=== PATIENT | male | born 1985 | race African-American/Black ===

== ENCOUNTER 2019-08-28 20:04 | Emergency (ER) | payer OTHER ==
--- NOTE | 2019-08-28 20:38 | ER ---
Nurse's Notes [facility] Name: Jesse Chilel Age: 34 yrs Sex: Male : 1985 Arrival Date: 08/28/2019 Time: 20:08 Bed 19 Private MD: Diagnosis: Dental caries;Dentalgia;Essential (primary) hypertension Presentation: 08/28 20:12 Presenting complaint: Patient states: "I have an abscess in like an impacted tooth and aj1 I'm in so much pain. I have an extraction on but the pain is too much until then". Transition of care: patient was not received from another setting of care. Onset of symptoms was August 28, 2019. Risk Assessment: Do you want to hurt yourself or someone else? Patient reports no desire to harm self or others. Initial Sepsis Screen: Does the patient meet any 2 criteria? HR > 90 bpm. No. Patient's initial sepsis screen is negative. Does the patient have a suspected source of infection? Yes: Other: possible infected tooth. Care prior to arrival: None. 20:12 Method Of Arrival: Ambulatory aj 20:12 Acuity: IVAN 4 aj1 Triage Assessment: 20:15 General: Appears in no apparent distress. uncomfortable, Behavior is calm, cooperative, aj1 appropriate for age. Pain: Complains of pain in right jaw. Neuro: Level of Consciousness is awake, alert, obeys commands. Cardiovascular: Patient's skin is warm and dry. Respiratory: Airway is patent Respiratory effort is even, unlabored, Respiratory pattern is regular, symmetrical. Historical: - Allergies: 20:15 NKA; aj1 - Home Meds: 20:15 Trileptal oral oral [Active]; Effexor Oral [Active]; Abilify oral oral [Active]; aj1 Lamictal Oral [Active]; Prazosin Oral [Active]; - PMHx: 20:15 Asthma; Bipolar disorder; GERD; Hypertension; aj1 - Immunization history:: Flu vaccine is not up to date. - Social history:: Smoking status: Patient uses tobacco products, denies chronic smoking, but will smoke occasionally. - Ebola Screening: : Patient denies travel to an Ebola-affected area in the 21 days before illness onset. Screenin:38 Abuse screen: Denies threats or abuse. Denies injuries from another. Nutritional wh screening: No deficits noted. Tuberculosis screening: No symptoms or risk factors identified. Fall Risk None identified. Assessment: 20:37 General: Appears in no apparent distress. uncomfortable, Behavior is calm, cooperative, wh appropriate for age. Pain: Complains of pain in right jaw Pain does not radiate. Pain currently is 10 out of 10 on a pain scale. Quality of pain is described as aching, Pain began 2-3 days ago. 20:37 Neuro: Level of Consciousness is awake, alert, obeys commands, Oriented to person, wh place, time, situation, Appropriate for age. Cardiovascular: Capillary refill < 3 seconds. Cardiovascular: Heart tones S1 S2 Respiratory: Breath sounds are clear bilaterally. GI: Abdomen is flat, non-distended. : No signs and/or symptoms were reported regarding the genitourinary system. EENT: dental carries. Derm: Skin is intact, is healthy with good turgor, Skin is pink, warm \\T\\ dry. normal. Musculoskeletal: Circulation, motion, and sensation intact. 21:22 Reassessment: Patient appears in no apparent distress at this time. No changes from previously documented assessment. Patient and/or family updated on plan of care and expected duration. Pain level reassessed. Patient is alert, oriented x 3, equal unlabored respirations, skin warm/dry/pink. Vital Signs: 20:15 BP 181 / 114; Pulse 95; Resp 18; Temp 97.3; Pulse Ox 98% on R/A; Weight 181.44 kg (R); aj1 Height 6 ft. 5 in. (195.58 cm) (R); Pain 10/10; 21:22 BP 164 / 98; Pulse 92; Resp 18; Pulse Ox 99% ; wh 20:15 Body Mass Index 47.43 (181.44 kg, 195.58 cm) aj1 ED Course: 20:08 Patient arrived in ED. ds1 20:13 Triage completed. aj1 20:15 Arm band placed on. aj1 20:25 Criselda Lim FNP-C is PHCP. snw 20:25 Perfecto Nuñez MD is Attending Physician. snw 20:36 Desmond Mcgowan is Primary Nurse. wh 20:38 Patient has correct armband on for positive identification. Bed in low position. Call wh light in reach. Side rails up X 1. Pulse ox on. NIBP on. 20:49 No provider procedures requiring assistance completed. Patient did not have IV access during this emergency room visit. Administered Medications: 20:46 Drug: Valium 2 mg Route: PO; ea 21:21 Follow up: Response: No adverse reaction; RASS: Alert and Calm (0) 20:46 Drug: morphine 10 mg {Note: RASS1.} Route: IM; Site: right gluteus; ea 21:22 Follow up: Response: No adverse reaction; Pain is decreased; RASS: Alert and Calm (0) Outcome: 20:37 Discharge ordered by . dinesh 21:21 Discharged to home ambulatory, with family. 21:21 Condition: stable 21:21 Discharge instructions given to patient, family, Instructed on discharge instructions, follow up and referral plans. no drinking with medication, no driving heavy equipment, medication usage, POC Dental Abscess and HTN Demonstrated understanding of instructions, follow-up care, medications, POC Prescriptions given X 2. 21:22 Patient left the ED. Signatures: Anna Zavala RN RN aj1 Criselda Lim, FUR BLOWING MACHINE ATTENDANT-C FUR BLOWING MACHINE ATTENDANT-Csnw Karin Ku ds1 Jess Daly RN RN ea [place], Winsy Corrections: (The following items were deleted from the chart) 20:16 20:12 Acuity: IVAN 5 aj1 aj1
--- NOTE | 2019-08-28 20:38 | EDPHYS ---
Physician Documentation [facility] Name: Jesse Chilel Age: 34 yrs Sex: Male : 1985 Arrival Date: 08/28/2019 Time: 20:08 Bed 19 Private MD: ED Physician Perfecto Nuñez HPI: 08/28 21:05 This 34 yrs old Black Male presents to ER via Ambulatory with complaints of Dental snw Abscess. 21:05 Onset: The symptoms/episode began/occurred suddenly, and became worse and became snw persistent. Associated signs and symptoms: The patient has no apparent associated signs or symptoms. Modifying factors: The patient symptoms are alleviated by nothing. It is unknown whether or not the patient has had similar symptoms in the past. The patient has been recently seen by a physician: a dentist. Historical: - Allergies: 20:15 NKA; aj1 - Home Meds: 20:15 Trileptal oral oral [Active]; Effexor Oral [Active]; Abilify oral oral [Active]; aj1 Lamictal Oral [Active]; Prazosin Oral [Active]; - PMHx: 20:15 Asthma; Bipolar disorder; GERD; Hypertension; aj1 - Immunization history:: Flu vaccine is not up to date. - Social history:: Smoking status: Patient uses tobacco products, denies chronic smoking, but will smoke occasionally. - Ebola Screening: : Patient denies travel to an Ebola-affected area in the 21 days before illness onset. ROS: 21:02 Constitutional: Negative for fever, chills, and weight loss, Eyes: Negative for injury, snw pain, redness, and discharge, Neck: Negative for injury, pain, and swelling, Cardiovascular: Negative for chest pain, palpitations, and edema, Respiratory: Negative for shortness of breath, cough, wheezing, and pleuritic chest pain, Abdomen/GI: Negative for abdominal pain, nausea, vomiting, diarrhea, and constipation, Back: Negative for injury and pain, : Negative for injury, bleeding, discharge, and swelling, MS/Extremity: Negative for injury and deformity, Skin: Negative for injury, rash, and discoloration, Neuro: Negative for headache, weakness, numbness, tingling, and seizure. 21:03 ENT: Positive for dental pain. snw Exam: 20:59 Constitutional: This is a well developed, well nourished patient who is awake, alert, snw and in no acute distress. Head/Face: Normocephalic, atraumatic. Eyes: Pupils equal round and reactive to light, extra-ocular motions intact. Lids and lashes normal. Conjunctiva and sclera are non-icteric and not injected. Cornea within normal limits. Periorbital areas with no swelling, redness, or edema. Neck: Trachea midline, no thyromegaly or masses palpated, and no cervical lymphadenopathy. Supple, full range of motion without nuchal rigidity, or vertebral point tenderness. No Meningismus. Chest/axilla: Normal chest wall appearance and motion. Nontender with no deformity. No lesions are appreciated. Cardiovascular: Regular rate and rhythm with a normal S1 and S2. No gallops, murmurs, or rubs. Normal PMI, no JVD. No pulse deficits. Respiratory: Lungs have equal breath sounds bilaterally, clear to auscultation and percussion. No rales, rhonchi or wheezes noted. No increased work of breathing, no retractions or nasal flaring. Abdomen/GI: Soft, non-tender, with normal bowel sounds. No distension or tympany. No guarding or rebound. No evidence of tenderness throughout. Back: No spinal tenderness. No costovertebral tenderness. Full range of motion. Skin: Warm, dry with normal turgor. Normal color with no rashes, no lesions, and no evidence of cellulitis. MS/ Extremity: Pulses equal, no cyanosis. Neurovascular intact. Full, normal range of motion. Neuro: Awake and alert, GCS 15, oriented to person, place, time, and situation. Cranial nerves II-XII grossly intact. Motor strength 5/5 in all extremities. Sensory grossly intact. Cerebellar exam normal. Normal gait. Psych: Awake, alert, with orientation to person, place and time. Behavior, mood, and affect are within normal limits. 20:59 ENT: External ear(s): are unremarkable, Ear canal(s): are normal, TM's: are normal, Nose: is normal, Mouth: is normal, Posterior pharynx: is normal, Dental exam: dental caries, that is severe, diffusely, pain, that is moderate, specifically in the lower right third molar (#32), Voice: is normal. Vital Signs: 20:15 BP 181 / 114; Pulse 95; Resp 18; Temp 97.3; Pulse Ox 98% on R/A; Weight 181.44 kg (R); aj1 Height 6 ft. 5 in. (195.58 cm) (R); Pain 10/10; 21:22 BP 164 / 98; Pulse 92; Resp 18; Pulse Ox 99% ; wh 20:15 Body Mass Index 47.43 (181.44 kg, 195.58 cm) aj1 MDM: 20:37 Patient medically screened. snw 21:04 Data reviewed: vital signs, nurses notes. Data interpreted: Pulse oximetry: on room air snw is 98 %. Interpretation: normal. Counseling: I had a detailed discussion with the patient and/or guardian regarding: the historical points, exam findings, and any diagnostic results supporting the discharge/admit diagnosis, the presence of at least one elevated blood pressure reading (>120/80) during this emergency department visit, the need for outpatient follow up, to return to the emergency department if symptoms worsen or persist or if there are any questions or concerns that arise at home. Special discussion: Based on the history and exam findings, there is no indication for further emergent testing or inpatient evaluation. I discussed with the patient/guardian the need to see a dentist for further evaluation of the symptoms. ED course: Pt has appt for extraction on , taking clindamycin po. Administered Medications: 20:46 Drug: Valium 2 mg Route: PO; ea 21:21 Follow up: Response: No adverse reaction; RASS: Alert and Calm (0) 20:46 Drug: morphine 10 mg {Note: RASS1.} Route: IM; Site: right gluteus; ea 21:22 Follow up: Response: No adverse reaction; Pain is decreased; RASS: Alert and Calm (0) Disposition: 21:36 Co-signature as Attending Physician, Perfecto Nuñez MD Signed chart for administrative ps1 purposes . Disposition: 08/28/19 20:37 Discharged to Home. Impression: Dental caries, Dentalgia, Essential (primary) hypertension. - Condition is Stable. - Discharge Instructions: Dental Pain, Hypertension, Diet and Dental Disease, DASH Eating Plan, Rehydration, Adult, Managing Your Hypertension, Preventive Dental Care, Adult. - Prescriptions for chlorhexidine gluconate 0.12 % Mucous Membrane mouthwash - place 15 milliliter by MUCOUS MEMBRANE route 2 times per day after brushing teeth, swish in mouth for 30 seconds then spit out; 480 milliliter. Tylenol- Codeine #3 300-30 mg Oral Tablet - take 2 tablets by ORAL route every 6 hours As needed; 10 tablet. - Medication Reconciliation Form, Thank You Letter, Antibiotic Education, Prescription Opioid Use form. - Follow up: Emergency Department; When: As needed; Reason: Worsening of condition. Follow up: Private Physician; When: as scheduled; Reason: Recheck today's complaints, Continuance of care. - Notes: dental wax as needed Signatures: Anna Zavala, RN RN aj1 Criselda Lim, REMY-C FIREWORKS ASSEMBLY SUPERVISOR-Csnw Jess Daly, RN RN Desmond Syed Phillip, MD MD ps1 Corrections: (The following items were deleted from the chart) 21:22 20:37 08/28/2019 20:37 Discharged to Home. Impression: Dental caries; Dentalgia; wh Essential (primary) hypertension. Condition is Stable. Forms are Medication Reconciliation Form, Thank You Letter, Antibiotic Education, Prescription Opioid Use. Follow up: Emergency Department; When: As needed; Reason: Worsening of condition. Follow up: Private Physician; When: as scheduled; Reason: Recheck today's complaints, Continuance of care. snw
[2019-08-28] MEDS ORDERED: MORPHINE 2 MG/ML SYR ONE (20:40)
[2019-08-28] MEDS ORDERED: MORPHINE 4 MG/ML SYR ONE (20:40)
[2019-08-28] MEDS ORDERED: DIAZEPAM 2 MG TABLET ONE (20:41)
[2019-08-28 21:28] VITALS: TEMP 97.3
[2019-08-28 21:30] VITALS: BP 164/98; O2SAT 99
== END 2019-08-28 21:22 | disposition home or self-care (01) ==
LOC: ER 20:04
DX: K02.9 Dental caries, unspecified (principal); K08.89 Other specified disorders of teeth and supporting structures; I10 Essential (primary) hypertension; F31.9 Bipolar disorder, unspecified; Z72.0 Tobacco use
CPT/HCPCS: 96372; 99283; J2270

== ENCOUNTER 2020-04-07 11:00 | Emergency (ER) | payer OTHER ==
[2020-04-07 13:35] LABS: Absolute Lymphocytes (CBC) 2.5 K/uL (0.7-4.9); Basophils % 0.8 % (0-1.3); Hematocrit 38.8 % (39.6-49.0); Lymphocytes % 30.1 % (15.3-44.8); MPV 8.8 fL (7.6-11.3); RBC Red Blood Cell Count 4.67 M/uL (4.33-5.43)
[2020-04-07] MEDS ORDERED: MAGNE/ALUM HYDROXD 30 ML UCUP ONE (13:37)
[2020-04-07] MEDS ORDERED: LIDOCAINE VISCOUS 2% SOLN 15 ML UDC ONE (13:38)
[2020-04-07] MEDS ORDERED: MECLIZINE HCL 12.5 MG TAB ONE (13:38)
[2020-04-07] MEDS ORDERED: NA CHLORIDE 0.9% 1,000 ML ONE (13:38)
[2020-04-07 13:47] LABS: BUN Blood Urea Nitrogen 8 mg/dL (7-18); Bicarbonate 31 mmol/L (21-32); Glucose Level 100 mg/dL (74-106); Potassium 4.4 mmol/L (3.5-5.1); Sodium Level 141 mmol/L (136-145)
--- NOTE | 2020-04-07 13:57 | RAD REPORT ---
EXAM DESCRIPTION: CT - Head Brain Wo Cont - 04/07/2020 1:41 pm CLINICAL HISTORY: Dizziness COMPARISON: 2015 TECHNIQUE: Computed axial tomography of the head was obtained. IV contrast was not requested. All CT scans are performed using dose optimization technique as appropriate and may include automated exposure control or mA/KV adjustment according to patient size. FINDINGS: An intracranial bleed is not seen . The ventricles are normal in caliber. No extra-axial fluid collection is noted. Fluid within the sinuses/ mastoids is not seen. Mild chronic ethmoid sinusitis IMPRESSION: No acute intracranial abnormality is seen. If patient's symptoms persist MRI of the bra in would be recommended.
--- NOTE | 2020-04-07 14:35 | EDPHYS ---
Physician Documentation [facility] Name: Jesse Chilel Age: 35 yrs Sex: Male : 1985 Arrival Date: 04/07/2020 Time: 11:03 Bed 26 Private MD: ED Physician Juan Diego Laguerre HPI: 04/07 14:23 This 35 yrs old Black Male presents to ER via Ambulatory with complaints of Dizziness, rn Vomiting. 14:23 The patient presents with feeling off balance, sense of spinning, vertigo. Onset: The rn symptoms/episode began/occurred 3 day(s) ago. Modifying factors: The symptoms are alleviated by holding head still, lying down, the symptoms are aggravated by movement of head, standing up, changing position. Associated signs and symptoms: Pertinent positives: nausea, vomiting, Pertinent negatives: abdominal pain, chest pain, seizure. Severity of symptoms: At their worst the symptoms were moderate in the emergency department the symptoms have improved. The patient has not experienced similar symptoms in the past. The patient has not recently seen a physician. Reports negative test for COVID recently but now having headache, dizziness, nausea, intermittent, worse with changing position/standing up, better when laying down and still. . Historical: - Allergies: 11:15 NKA; em - PMHx: 11:15 Asthma; Bipolar disorder; GERD; Hypertension; em - PSHx: 11:18 left foot; em - Immunization history:: Adult Immunizations up to date. - Social history:: Smoking status: Patient denies any tobacco usage or history of. - Family history:: not pertinent. - Hospitalizations: : No recent hospitalization is reported. ROS: 14:23 Constitutional: Negative for fever, chills, and weight loss, Eyes: Negative for injury, rn pain, redness, and discharge, Neck: Negative for injury, pain, and swelling, Cardiovascular: Negative for chest pain, palpitations, and edema, Respiratory: Negative for shortness of breath, cough, wheezing, and pleuritic chest pain, Abdomen/GI: Negative for abdominal pain, diarrhea, and constipation, Back: Negative for injury and pain, MS/Extremity: Negative for injury and deformity, Skin: Negative for injury, rash, and discoloration, Neuro: Negative for headache, weakness, numbness, tingling, and seizure. Exam: 14:03 ECG was reviewed by the Attending Physician. rn 14:23 Constitutional: This is a well developed, well nourished patient who is awake, alert, rn and in no acute distress. Head/Face: Normocephalic, atraumatic. Neck: Trachea midline, no thyromegaly or masses palpated, and no cervical lymphadenopathy. Supple, full range of motion without nuchal rigidity, or vertebral point tenderness. No Meningismus. Cardiovascular: Regular rate and rhythm. No pulse deficits. Respiratory: No increased work of breathing, no retractions or nasal flaring. Abdomen/GI: soft, non-tender MS/ Extremity: Pulses equal, no cyanosis. Neurovascular intact. Full, normal range of motion. Equal circumference. Neuro: Awake and alert, GCS 15, oriented to person, place, time, and situation. Cranial nerves II-XII grossly intact. Motor strength 5/5 in all extremities. Sensory grossly intact. Cerebellar exam normal. Vital Signs: 11:10 BP 188 / 94; Pulse 96; Resp 20; Temp 98.4; Pulse Ox 100% on R/A; Weight 192.78 kg (M); em Height 6 ft. 5 in. (195.58 cm); Pain 0/10; 13:43 BP 151 / 96; Pulse 80; Resp 18; Temp 98.3(TE); Pulse Ox 98% ; Pain 0/10; ks7 13:49 BP 142 / 96; Pulse 91; Resp 18; Temp 98.3; Pulse Ox 100% ; Pain 0/10; ks7 13:50 Pulse Ox 99% on R/A; Pain 0/10; ks7 13:50 Pulse Ox 99% on R/A; Pain 0/10; ks7 15:05 BP 147 / 86; Pulse 80; Resp 18; Temp 98.2(TE); Pulse Ox 100% on R/A; Pain 0/10; ks7 15:33 BP 146 / 86; Pulse 89; Resp 18; Temp 98.2(TE); Pulse Ox 100% on R/A; Pain 0/10; ks7 11:10 Body Mass Index 50.40 (192.78 kg, 195.58 cm) em MDM: 13:06 Patient medically screened. rn 14:23 Differential diagnosis: idiopathic dizziness, vertigo. Data reviewed: vital signs, rn nurses notes, lab test result(s), EKG, radiologic studies, CT scan, and as a result, I will discharge patient. Counseling: I had a detailed discussion with the patient and/or guardian regarding: the historical points, exam findings, and any diagnostic results supporting the discharge/admit diagnosis, lab results, radiology results, the need for outpatient follow up, to return to the emergency department if symptoms worsen or persist or if there are any questions or concerns that arise at home. Response to treatment: the patient's symptoms have markedly improved after treatment, and as a result, I will discharge patient. Special discussion: I discussed with the patient/guardian in detail that at this point there is no indication for admission to the hospital. It is understood, however, that if the symptoms persist or worsen the patient needs to return immediately for re-evaluation. Based on the history and exam findings, there is no indication for further emergent testing or inpatient evaluation. I discussed with the patient/guardian the need to see the neurologist for further evaluation of the symptoms. ED course: Pt improved, is joking now, most likely vertigo, benign, neg ct head, COID test possibly false neg given young age, + close exposure to positive patient, and now neurological findings. Will dc home with meclizine, zofran, and medrol dose pack. . 04/07 13:20 Order name: CBC with Diff; Complete Time: 13:50 rn 04/07 13:20 Order name: Basic Metabolic Panel; Complete Time: 13:50 rn 04/07 13:20 Order name: CT Head Brain wo Cont; Complete Time: 14:20 rn 04/07 13:20 Order name: EKG; Complete Time: 13:21 rn 04/07 13:20 Order name: EKG - Nurse/Tech; Complete Time: 14:30 rn 04/07 13:20 Order name: IV Start; Complete Time: 13:24 rn EC:03 Rate is 87 beats/min. Rhythm is regular. QRS [place] is Normal. VT interval is normal. QRS rn interval is normal. QT interval is normal. No Q waves. T waves are Normal. No ST changes noted. Clinical impression: Normal ECG. Interpreted by me. Reviewed by me. Administered Medications: Discontinued: NS 0.9% 500 ml IV at bolus once 13:00 Drug: GI Cocktail without - (Maalox Suspension 30 ml, Lidocaine Liquid 2 % 15 ks7 ml) Route: PO; 13:50 Follow up: Pulse Ox 99% RA; Pain 0/10 Adult ks7 13:35 Drug: Meclizine 50 mg Route: PO; ks7 13:50 Follow up: Pulse Ox 99% RA; Pain 0/10 Adult ks7 13:35 Drug: NS 0.9% 500 ml Route: IV; Rate: bolus; Site: right antecubital; ks7 Disposition: 04/07/20 14:34 Discharged to Home. Impression: Vertigo, unspecified. - Condition is Stable. - Discharge Instructions: Vertigo. - Prescriptions for Zofran ODT 4 mg Oral tablet,disintegrating - place 1 tablet by TRANSLINGUAL route every 8 hours As needed; 20 tablet. Meclizine 25 mg Oral Tablet - take 1 tablet by ORAL route every 8 hours As needed; 30 tablet. Medrol (Darrin) 4 mg Oral Tablets, Dose Pack - take 1 tablet by ORAL route as directed - follow package instructions; 1 packet. - Medication Reconciliation Form, Thank You Letter, Antibiotic Education, Prescription Opioid Use form. - Follow up: Abdias Zavala MD; When: As needed; Reason: Recheck today's complaints, Re-evaluation by your physician. - Problem is new. - Symptoms have improved. Signatures: Dispatcher [employer] Cricket Willingham, RN Juan Diego Rodas MD MD rn Songc[place], Kathleen, RN RN ks7 Corrections: (The following items were deleted from the chart) 15:34 14:34 04/07/2020 14:34 Discharged to Home. Impression: Vertigo, unspecified. Condition ks7 is Stable. Forms are Medication Reconciliation Form, Thank You Letter, Antibiotic Education, Prescription Opioid Use. Follow up: Abdias Zavala; When: As needed; Reason: Recheck today's complaints, Re-evaluation by your physician. Problem is new. Symptoms have improved. rn
--- NOTE | 2020-04-07 14:35 | ER ---
Nurse's Notes [facility] Name: Jesse Chilel Age: 35 yrs Sex: Male : 1985 Arrival Date: 04/07/2020 Time: 11:03 Bed 26 Private MD: Diagnosis: Vertigo, unspecified Presentation: 04/07 11:10 Chief complaint: Patient states: "I don't feel good, been having night sweats, room has em been spinning a lot, been nauseous and puking, also trouble walking" tested positive about 2-3 weeks ago, both were tested and had negative results about 1 week ago, still feels off, denies body aches. Coronavirus screen: Patient denies a cough. Patient denies shortness of breath or difficulty breathing. Patient denies measured and/or subjective temperature greater than 100.4F prior to today's visit. Patient denies travel on a cruise ship or to a country the [facility] currently lists as an affected area. Ebola Screen: Patient negative for fever greater than or equal to 101.5 degrees Fahrenheit, and additional compatible Ebola Virus Disease symptoms Patient denies exposure to infectious person. Patient denies travel to an Ebola-affected area in the 21 days before illness onset. No symptoms or risks identified at this time. Initial Sepsis Screen: Does the patient meet any 2 criteria? HR > 90 bpm. Does the patient have a suspected source of infection? No. Patient's initial sepsis screen is negative. Risk Assessment: Do you want to hurt yourself or someone else? Patient reports no desire to harm self or others. Onset of symptoms was April 02, 2020. 11:10 Method Of Arrival: Ambulatory em 11:10 Acuity: IVAN 3 em Triage Assessment: 15:31 General: Appears uncomfortable, Behavior is cooperative. GI: Reports nausea. ks7 Historical: - Allergies: 11:15 NKA; em - PMHx: 11:15 Asthma; Bipolar disorder; GERD; Hypertension; em - PSHx: 11:18 left foot; em - Immunization history:: Adult Immunizations up to date. - Social history:: Smoking status: Patient denies any tobacco usage or history of. - Family history:: not pertinent. - Hospitalizations: : No recent hospitalization is reported. Screenin:59 Abuse screen: Denies threats or abuse. Denies injuries from another. Nutritional ks7 screening: GERD hx, reports indigestion. Tuberculosis screening: No symptoms or risk factors identified. Fall Risk No fall in past 12 months (0 pts). Secondary diagnosis (15 points) dizziness. Ambulatory Aid- None/Bed Rest/Nurse Assist (0 pts). Gait- Normal/Bed Rest/Wheelchair (0 pts) Mental Status- Oriented to own ability (0 pts). Total Nuñez Fall Scale indicates No Risk (0-24 pts). Assessment: 13:59 Pain: Complains of pain in SCHULER and acid reflux Pain currently is 7 out of 10 on a pain ks7 scale. Quality of pain is described as burning, aching, Alleviated by medications, Current management. GI: Abdomen is round non-distended, Reports indigestion, intolerance of food, nausea. 14:14 Reassessment: Patient denies pain at this time. Patient states feeling better. Linseed Oil Temperer ks7 at bedside talking with pt.. 15:04 Reassessment: fluids infusing then DC home. ks7 15:30 Reassessment: no indegestion resolved, denies SCHULER, dizziness Patient states feeling ks7 better. Vital Signs: 11:10 BP 188 / 94; Pulse 96; Resp 20; Temp 98.4; Pulse Ox 100% on R/A; Weight 192.78 kg (M); em Height 6 ft. 5 in. (195.58 cm); Pain 0/10; 13:43 BP 151 / 96; Pulse 80; Resp 18; Temp 98.3(TE); Pulse Ox 98% ; Pain 0/10; ks7 13:49 BP 142 / 96; Pulse 91; Resp 18; Temp 98.3; Pulse Ox 100% ; Pain 0/10; ks7 13:50 Pulse Ox 99% on R/A; Pain 0/10; ks7 13:50 Pulse Ox 99% on R/A; Pain 0/10; ks7 15:05 BP 147 / 86; Pulse 80; Resp 18; Temp 98.2(TE); Pulse Ox 100% on R/A; Pain 0/10; ks7 15:33 BP 146 / 86; Pulse 89; Resp 18; Temp 98.2(TE); Pulse Ox 100% on R/A; Pain 0/10; ks7 11:10 Body Mass Index 50.40 (192.78 kg, 195.58 cm) em Vitals: 13:59 Cardiac Rhythm Assessment Regular. ks7 ED Course: 11:03 Patient arrived in ED. ag5 11:15 Triage completed. em 11:15 Arm band placed on. em 12:49 Penny Flores, RAJIV is Primary Nurse. ks7 13:06 Juan Diego Laguerre MD is Attending Physician. rn 13:26 Basic Metabolic Panel Sent. ks7 13:26 CBC with Diff Sent. ks7 13:[address] via wheelchair. ks7 13:42 CT Head Brain wo Cont In Process Unspecified. EDMS 13:45 Inserted saline lock: 20 gauge in right antecubital area, using aseptic technique. ks7 13:59 Patient has correct armband on for positive identification. Bed in low position. Call ks7 light in reach. Side rails up X2. 13:59 No provider procedures requiring assistance completed. ks7 14:33 Abdias Zavala MD is Referral Physician. rn 15:30 IV discontinued, intact, bleeding controlled, No redness/swelling at site. Pressure ks7 dressing applied. Administered Medications: Discontinued: NS 0.9% 500 ml IV at bolus once 13:00 Drug: GI Cocktail without - (Maalox Suspension 30 ml, Lidocaine Liquid 2 % 15 ks7 ml) Route: PO; 13:50 Follow up: Pulse Ox 99% RA; Pain 0/10 Adult ks7 13:35 Drug: Meclizine 50 mg Route: PO; ks7 13:50 Follow up: Pulse Ox 99% RA; Pain 0/10 Adult ks7 13:35 Drug: NS 0.9% 500 ml Route: IV; Rate: bolus; Site: right antecubital; ks7 Outcome: 14:34 Discharge ordered by . rn 15:30 Discharged to home ambulatory, with family. ks7 15:30 Condition: improved 15:30 Discharge instructions given to patient, significant other, Instructed on discharge instructions, follow up and referral plans. medication usage, Demonstrated understanding of instructions, follow-up care, medications, Prescriptions given X 3. 15:34 Patient left the ED. ks7 Signatures: Dispatcher [employer] EDND Cricket Hayes RN RN Juan Diego Laguerre MD MD rn Gaskin, Ajare ag5 Songcuan, Penny, RN RN ks7
--- OUTSIDE RECORDS SUMMARY | 2020-04-07 15:57 | XMS REPORT | Clinical Summary ---
:1985 Author Organization [facility] Dist[facility] Address [facility] [place] [address] Care Team Providers Name Role Phone Unavailable Primary Care Provider Unavailable Allergies No Known Allergies Medications Medication Sig Dispensed Refills Start Date End Date Status hydrochlorothiazide Take 1 tablet 90 tablet 2 04/08/2014 Active (HYDRODIURIL) 25 mg by mouth tabletIndications: daily. Essential hypertension, benign omeprazole (PRILOSEC) 20 Take 1 capsule 180 capsule 1 06/18/20 14 Active mg delayed release by mouth 2 capsuleIndications: GERD times daily. (gastroesophageal reflux disease) acetaminophen-codeine Take 1 tablet 10 tablet 0 02/08/2016 Active (TYLENOL/CODEINE #3) by mouth every 300-30 mg per 4 hours as tabletIndications: Right needed for wrist pain, Arthralgia of Pain. left hip paliperidone (INVEGA) 6 Take 1 tablet 30 tablet 0 06/29/2018 Active mg extended release by mouth every tabletIndications: Mood morning. disorder, Bipolar 1 disorder benztropine (COGENTIN) Take 1 tablet 60 tablet 1 06/29/2018 Active 0.5 mg tabletIndications: by mouth 2 Mood disorder times daily. busPIRone (BUSPAR) 10 mg Take 1/2 90 tablet 1 06/29/2018 Active tabletIndications: tablet three Anxiety times a day for two weeks, then increase to a whole tablet three times a day.. Active Problems Problem Noted Date Wrist pain 02/08/2016 Hip pain 02/08/2016 Cluster B personality disorder 02/08/2016 Herpes labialis 03/11/2014 Anemia 03/11/2014 Hypertension 03/06/2014 Tooth abscess 03/06/2014 Obesity 03/06/2014 Bipolar 1 disorder 03/04/2014 Cannabis abuse 03/04/2014 Arthralgia of left hip Mood disorder Right wrist pain Family History Medical History Relation Name Comments Cancer Paternal Aunt Heart Paternal Aunt Heart Paternal Grandmother Relation Name Status Comments Paternal Aunt Paternal Aunt Paternal Grandmother Social History Tobacco Use Types Packs/Day Years Used Date Current Every Day Smoker Cigarettes Smokeless Tobacco: Never Used Tobacco Cessation: Ready to Quit: No; Co unseling Given: Yes Alcohol Use Drinks/Week oz/Week Comments Yes occasional Sex Assigned at Date Recorded Not on file Job Start Date Occupation Industry Not on file Not on file Not on file Travel History Travel Start Travel End No recent travel history available. Last Filed Vital Signs Not on file Plan of Treatment Health Maintenance Due Date Last Done Comments IMM Influenza Seasonal Jun to November (>/= 19 yrs) 06/19/2020 Results Not on fileafter 04/07/2019 Insurance Payer Benefit Plan / Subscriber ID Effective Phone Address T ype Group Dates [facility] xxxxxxxxx 2016-Prese [phone] [facility] [place] [id number] [place] [address] [employer]HC MEDICARE xxxxxxxxx 2015-Prese [phone] [address] [place] [id number] [place] [address] [employer] xxxxxxxxx 2014-Prese [phone] [address] [place] [id number] [place] [address] [employer] xxxxxxxxx 2014-Prese [phone] [address] [place] [id number] [place] [address] [facility] SELF-PAY SELF-PAY xxxxxxxxx 2019-Pres [phone] [place] [address] Advance Directives Code Status Date Activated Date Inactivated Comments Full Code 03/05/2014 9:47 PM 03/11/2014 6:10 PM
--- OUTSIDE RECORDS SUMMARY | 2020-04-07 15:58 | XMS REPORT | Clinical Summary ---
:1985 Author Organization [facility] Address [address] [place] [address] Care Team Providers Name Role Phone Asked, Pcp Primary Care Provider Unavailable Allergies No Known Allergies Medications Not on file Active Problems Not on file Encounters Date Type Specialty Care Team Description 04/22/2019 Intake Access 04/16/2019 - Emergency Emergency Medicine Rehrer, David Psychosis , unspecified psychosis type (HCC) (Primary Dx); 04/17/2019 DO Berry Suicidal ideati on after 04/07/2019 Social History Tobacco Use Types Packs/Day Years Used Date Never Assessed Sex Assigned at Date Recorded Not on file Job Start Date Occupation Industry Not on file Not on file Not on file Travel History Travel Start Travel End No recent travel history available. Last Filed Vital Signs Vital Sign Reading Time Taken Comments Blood Pressure 165/90 04/17/2019 1:20 AM CDT Pulse 100 04/17/2019 1:20 AM CDT Temperature 36.6 C (97.8 F) 04/16/2019 9:23 PM CDT Respiratory Rate 20 04/17/2019 1:20 AM CDT Oxygen Saturation 100% 04/17/2019 1:20 AM CDT Inhaled Oxygen Concentration - - Weight - - Height 195.6 cm (6' 5") 04/16/2019 11:42 AM CDT Body Mass Index - - Plan of Treatment Not on file Procedures Procedure Name Priority Date/Time Associated Comments Diagnosis POC GLUCOSE Routine 04/16/2019 6:11 Results for this PM CDT procedure are i n the results section. URINE DRUGS OF ABUSE STAT 04/16/2019 9:45 Res ults for this SCREEN AM CDT procedure are i n the results section. URINALYSIS SCREEN AND STAT 04/16/2019 9:45 Re sults for this MICROSCOPY, WITH AM CDT procedure a re in REFLEX TO CULTURE the result s section. URINE CULTURE STAT 04/16/2019 9:45 Results fo r this AM CDT procedure are i n the results section. T4, FREE STAT 04/16/2019 9:15 Results for this AM CDT procedure are i n the results section. ALCOHOL LEVEL, BLOOD STAT 04/16/2019 9:15 Res ults for this AM CDT procedure are i n the results section. THYROID STIMULATING STAT 04/16/2019 9:15 Resu lts for this HORMONE AM CDT procedure are i n the results section. CT CRITICAL CARE, E/M Routine 04/16/2019 7:37 Re sults for this 30-74 MINUTES AM CDT procedure are in the results section. ESTIMATED GFR STAT 04/16/2019 5:09 Results fo r this AM CDT procedure are i n the results section. LITHIUM LEVEL STAT 04/16/2019 5:09 Results fo r this AM CDT procedure are i n the results section. VALPROIC ACID LEVEL STAT 04/16/2019 5:09 Resu lts for this AM CDT procedure are i n the results section. SALICYLATE LEVEL STAT 04/16/2019 5:09 Results for this AM CDT procedure are i n the results section. ACETAMINOPHEN LEVEL STAT 04/16/2019 5:09 Resu lts for this AM CDT procedure are i n the results section. CREATINE KINASE, TOTAL STAT 04/16/2019 5:09 R esults for this (CPK) AM CDT procedure are i n the results section. COMPREHENSIVE STAT 04/16/2019 5:09 Results fo r this METABOLIC PANEL AM CDT procedure ar e in the results section. HC COMPLETE BLD COUNT STAT 04/16/2019 5:09 Re sults for this W/AUTO DIFF AM CDT procedure are i n the results section. after 04/07/2019 Results POC glucose (04/16/2019 6:11 PM CDT) Pathologist Sig nature POC glucose 126 (H) 65 - 99 mg/dL [facility] Comment: [facility] Notified RN Meter ID: [id number] Skiver Uppers Or Linings: Zana Winslow Specimen Performing Organization Address City/State/Zipcode Phone Number [facility] DEPARTMENT OF PATHOLOGY AND [address], [place] [address] GENOMIC MEDICINE [facility] [address] [place] [phone] Urinalysis screen and microscopy, with reflex to culture (04/16/2019 9:45 AM CDT) Specimen site Clean catch [facility] Color, UA Dark Yellow [facility] Appearance, UA Clear [facility] Specific gravity, UA 1.026 1.001 - 1.035 [facility] pH, UA 6.0 5.0 - 8.5 [facility] Protein, UA 1+ (A) Negative [facility] Glucose, UA Negative Negative [facility] Ketones, UA 1+ (A) Negative [facility] Bilirubin, UA Negative Negative [facility] Blood, UA Negative Negative [facility] Nitrite, UA Negative Negative [facility] Urobilinogen, UA 2.0 (A) <2.0 [facility] Leukocyte esterase, Negative Negative [facility] Epithelial cells, UA <1 /HPF [facility] WBC, UA <1 0 - 1 /HPF [facility] RBC, UA 1 0 - 5 /HPF [facility] Bacteria, UA None seen None seen [facility] Yeast, UA None seen [facility] Yeast with None seen [facility] pseudohyphae, [facility] Hyaline casts, UA 1 /LPF [facility] Specimen Urine Performing Organization Address City/State/Zipcode Phone Number [facility] DEPARTMENT OF PATHOLOGY AND [address], [place] [address] [address] [address] Urine drugs of abuse screen (04/16/2019 9:45 AM CDT) Amphetamine screen, Negative [place] urine [facility] Barbiturate screen, Negative [place] urine [facility] Benzodiazepine Negative [place] screen, urine [facility] Cocaine screen, urine Negative [facility] Methadone metabolite Negative [place] (EDDP), urine [facility] Opiates screen, urine Negative [facility] Oxycodone screen, Negative [place] urine [facility] Phencyclidine screen, Negative [place] urine [facility] Tricyclic screen, Negative [place] urine [facility] Cannabinoid screen, Positive (A) [place] urine Comment: [facility] Drug screen minimum concentration of detectability HOSPITAL Amphetamines 1000 ng/mL Barbiturates 200 ng/mL Benzodiazepines 300 ng/mL Cocaine 300 ng/mL Methadone 300 ng/mL Opiates 300 ng/mL Oxycodone 300 ng/mL Phencyclidine 25 ng/mL Cannabinoids 50 ng/mL Tricyclics 1000 ng/mL Results are from screening tests and should only be used for medical evaluation. Drug testing for legal purposes requires definitive (or confirmatory) testing methods, which are available upon request. Contact the laboratory if definitive testing is requir ed. Specimen Urine Performing Organization Address City/[facility] Phone Number [facility] DEPARTMENT OF PATHOLOGY AND [address] [place] [phone] Urine culture (04/16/2019 9:45 AM CDT) Pathologist Sig [facility] Urine culture SEE COMMENTComment: [facility] Bacteriuria screen HOSPITAL negative. Specimen Performing Organization Address [facility] Phone Number [facility] DEPARTMENT OF PATHOLOGY AND [address] [place] [phone] Thyroid stimulating hormone (04/16/2019 9:15 AM CDT) Pathologist Sig nature TSH 1.30 0.27 - 4.20 uIU/mL [facility] ITAL Specimen Plasma specimen Performing Organization Address [facility] Phone Number [facility] DEPARTMENT OF PATHOLOGY AND [address] [place] [phone] T4, free (04/16/2019 9:15 AM CDT) Pathologist Sig nature T4, free 1.7 0.9 - 1.7 ng/dL [facility] L Specimen Plasma specimen Performing Organization Address [facility] Phone Number [facility] DEPARTMENT OF PATHOLOGY AND [address] [place] [address] [place] [address] Alcohol level, blood (04/16/2019 9:15 AM CDT) Alcohol None Detected mg/dL [facility] Comment: HOSPITAL Normal None Detected Legal Intoxication in [place] 80 mg/dL (0.08%) - Whole Blood Toxic Concentration 200 mg/dL (0.2%) Potentially Fatal 350 - 500 mg/dL (0. 35 - 0.5%) Alcohol percent None Detected % [facility] Specimen Plasma specimen Performing Organization Address City/State/Zipcode Phone Number [facility] DEPARTMENT OF PATHOLOGY AND [address], [place] [address] GENOMIC MEDICINE [facility] [address] [place] [address] CRITICAL CARE (04/16/2019 7:37 AM CDT) Narrative Performed At David Vences DO 04/17/2019 9:35 AM Critical Care Performed by: David Vences DO Authorized by: David Vences DO Critical care provider statement: Critical care time (minutes): 32 Critical care time was exclusive of: Separately b illable procedures and treating other patients Critical care was necessary to treat or prevent imminent or life-threatening deterioration of the following condit ions: Toxidrome and metabolic crisis (psychiatric emergency ) Critical care was time spent personal ly by me on the following activities: Blood draw for specimens, development of treatment plan with patient or surrogate, evaluation of alejandro ent's response to treatment, examination of patient, obtaining histor y from patient or surrogate, re-evaluation of patient's condition, pulse oximetry, ordering and review of radiographic studies, ordering and re view of laboratory studies and ordering and performing treatments and i nterventions Bernabe 'yes' if you are taking over critical care for this patient from another provider.: no Comments: The patient is critically ill due to but not limited to: ongoing respiratory failure, high risk for respi ratory failure, hemodynamic or metabolic deterioration, altered mental status, and ac [place] organ failure. The patient is requiring frequent assess ment, treatment, life-saving devices, and prevention and management o f life threatening conditions. Estimated GFR (04/16/2019 5:09 AM CDT) Estimated GFR >=90 mL/min/1.73 [facility] Comment: m2 HOSPITAL Catergory Units Interpretation G1 >=90 Normal or high G2 60-89 Mildly decreased G3a 45-59 Mildly to moderately decreas ed G3b 30-44 Moderately to severely decre ased G4 15-29 Severely decreased G5 <15 Kidney failure The eGFR was calculated using the Chronic Kidney Disea se Epidemiology Collaboration (CKD-EPI) equation. Interpretation is based on recommendations of the National Kidney Foundation-Kidney Disease Outcomes [place] lity Initiative (NKF-KDOQI) published in 2014. Corrected result; previously reported as 83 on 019 at 06:30 by I/AUT Specimen Plasma specimen Performing Organization Address City/[facility]/Zipcode Phone Number [facility] DEPARTMENT OF PATHOLOGY AND [address], [place] [address] [address] CBC with platelet and differential (04/16/2019 5:09 AM CDT) WBC 7.96 4.50 - 11.00 [facility] k/uL HOSPITAL RBC 4.49 4.40 - 6.00 [facility] m/[facility] HGB 12.5 (L) 14.0 - 18.0 [facility] gdL [facility] HCT 36.9 (L) 41.0 - 51.0 % [facility] MCV 82.2 82.0 - 100.0 [facility] MCH 27.8 27.0 - 34.0 pg [facility] MCHC 33.9 31.0 - 37.0 [facility] RDW - SD 38.2 37.0 - 55.0 fL [facility] MPV 11.3 8.8 - 13.2 [facility] Platelet count 213 150 - 400 k/uL [facility] Nucleated RBC 0.00 /100 WBC [facility] Neutrophils 65.3 39.0 - 69.0 % [facility] Lymphocytes 21.1 (L) 25.0 - 45.0 % [facility] Monocytes 12.6 (H) 0.0 - 10.0 % [facility] Eosinophils 0.4 0.0 - 5.0 % [facility] Basophils 0.3 0.0 - 1.0 % [facility] Immature granulocytes 0.3Comment: 0.0 - 1.0 % [facility] "Immature [facility] granulocytes" (promyelocytes , myelocytes, metamyelocytes ) Specimen Blood Performing Organization Address City/[facility]/Zipcode Phone Number [facility] DEPARTMENT OF PATHOLOGY AND [address], [place] [address] [place] [id number] [place] [address] Creatine kinase, total (CPK) (04/16/2019 5:09 AM CDT) Pathologist Sig nature Creatine kinase 657 (H) 39 - 308 U/L [facility] L Specimen Plasma specimen Performing Organization Address City/[facility]/Zipcode Phone Number [facility] DEPARTMENT OF PATHOLOGY AND [address] [place] [address] [phone] [address] Acetaminophen level (04/16/2019 5:09 AM CDT) Acetaminophen level <5.0 (L) 10.0 - 30.0 [place] Comment: ug/mL [facility] Therapeutic 1 0-30 ug/mL HOSPITAL Possible Toxicity 150- 200 ug/mL Probable Toxicity >200 ug/mL Specimen Plasma specimen Performing Organization Address [facility] Centercode Phone Number [facility] DEPARTMENT OF PATHOLOGY AND [address] [place] [address] [place] [phone] Salicylate level (04/16/2019 5:09 AM CDT) Pathologist Sig nature Salicylate <3.0 3.0 - 30.0 mg/dL [facility] Specimen Plasma specimen Performing Organization Address [facility] Centercode Phone Number [facility] DEPARTMENT OF PATHOLOGY AND [address] [place] [address] [phone] [address] [place] level (04/16/2019 5:09 AM CDT) Pathologist Sig nature [place] <0.05 (L) 0.60 - 1.20 mmol/L [facility] Specimen Serum Performing Organization Address [facility] Phone Number [facility] DEPARTMENT OF PATHOLOGY AND [address] [place] [address] [phone] [address] Valproic acid level (04/16/2019 5:09 AM CDT) Valproic acid <2.8 (L) 50.0 - 100.0 [facility] Comment: ug/mL HOSPITAL Therapeutic Range: 50 - 100 ug/mL Specimen Plasma specimen Performing Organization Address City/[facility]/Zipcode Phone Number [facility] DEPARTMENT OF PATHOLOGY AND [address] [place] [address] [phone] [address] Comprehensive metabolic panel (04/16/2019 5:09 AM CDT) Sodium 140 135 - 148 [facility] mEq/L [facility] Potassium 3.3 (L) 3.5 - 5.0 [facility] mEq/L [facility] Chloride 100 98 - 112 [facility] mEq/L [facility] CO2 22 (L) 24 - 31 mEq/L [facility] Anion gap 18@ANIO (H) 7 - 15 mEq/L [facility] BUN 14 6 - 20 mg/dL [facility] Creatinine 1.16 0.70 - 1.20 [facility] mg/dL [facility] Glucose 119 (H) 65 - 99 mg/dL [facility] Calcium 9.7 8.3 - 10.2 [facility] mg/dL [facility] Protein 8.4 (H) 6.3 - 8.3 [facility] Comment: g/dL HOSPITAL [place] 4.6-7.0 g/dL 1 week 4.4-7.6 g/dL 7 months-1year 5.1-7.3 g/dL 1-2 years 5.6-7.5 g/dL >3 years 6.0-8.0 g/dL 18-150 6.3-8.3 g/dL Albumin 4.3 3.5 - 5.0 [facility] g/dL [facility] A/G ratio 1.0 0.7 - 3.8 [facility] Alkaline phosphatase 56 40 - 129 U/L [facility] AST 24 10 - 50 U/L [facility] ALT 32 5 - 50 U/L [facility] Total bilirubin 0.8 0.0 - 1.2 [facility] mg/dL [facility] Specimen Plasma specimen Performing Organization Address City/State/Zipcode Phone Number [facility] DEPARTMENT OF PATHOLOGY AND [address] [place] [phone] GENOMIC MEDICINE [facility] [address] [place] [address] after 04/07/2019 Insurance Payer Benefit Plan / Subscriber ID Effective Dates Phone Addre ss Type Group MEDICARE MEDICARE PART A xxxxxxxxxxx 2011-Present [facility] [place] Advance Directives For more information, please contact: [phone] Type Date Recorded Patient Mitten Stitcher Explanati on Advance Directives, Living 04/16/2019 7:25 AM MARLEEN CEDENO ISSUES Will and Medical Power of Note Keeper
--- OUTSIDE RECORDS SUMMARY | 2020-04-07 15:58 | XMS REPORT | Continuity of Care Document ---
:1985 Author Organization [employer] Care Team Providers Name Role Phone [employer] Unavailable Un available Problems Problem Status Onset Classification Date Comments Sourc e Date Reported Periapical 08/05/20 02/22/2019 [facility] abscess without 18 sinus Dental caries, 08/05/20 02/22/2019 [facility] unspecified 18 TOOTH PAIN Active 08/05/20 [facility] est 18 Other stimulant 01/30/20 02/01/2017 [facility] abuse, 17 uncomplicated STROKE SYMPTOMS Active 01/30/20 [facility] 17 Nicotine 02/22/2019 [facility] est dependence, unspecified, uncomplicated Bipolar disorder Active Problem 02/22/2019 [facility] (disorder) Medications Medication Details Route Status Patient Ordering Order Source Instructions Provider Date Acetaminophen 1 tab, PO, No Longer 300 MG / Codeine Q6H, PRN Active 018 [facility] est Phosphate 30 MG pain, X 7 Oral Tablet day, # 28 tab, 0 Refill(s) clindamycin 300 300 mg = 1 No Longer MH mg oral capsule cap, PO, Active [address] [facility] [address] Q6H, X 10 day, # 40 cap, 0 Refill(s) Acetaminophen 1 tab, Inactive 325 MG / Route: PO, 018 [facility] Hydrocodone Drug Form: Bitartrate 5 MG TAB, Oral Tablet Dosing Weight 168.636, kg, ONCE, STAT, Start date: 08/05/18 10:35:00 [employer], Stop date: 08/05/18 10:35:00 [employer] Diazepam 5 MG 5 mg, PO, Active Oral Tablet ONCE, # 1 017 [facility] [Valium] tab, 0 Refill(s) Ativan Notes: Inactive (Same as: [facility] Ativan) Valium Notes: Inactive (Same as: [facility] Valium) WASTE: F/P - Black; E - White/Blue Sodium Chloride 1,000 mL, Inactive 0.154 MEQ/ML 1,000 017 [facility] Injectable ml/hr, Solution Infuse Over: 1 hr, Route: IV, 1,000, Drug form: INJ, ONCE, Priority: STAT, Dosing Weight 136.364 kg, Start date: 01/29/17 16:22:00 CDT, Duration: 1 doses or times, Stop date: 01/29/17 16:22:00 CDT Allergies, Adverse Reactions, Alerts Substance Category Reaction Severity Reaction Status Date Comments S ource type Reported No Known Assertion Drug Medication allergy [facility] Allergies Immunizations No Data Provided for This Section Results Order Name Results Value Reference Date Interpretation Comments Jenelle rce Range CARDIAC Troponin-I <0.02 0.00 - 01/29 ENZYMES 0.40 [facility] CHEM PANEL B/C Ratio 8 6 - 25 01/29 [facility] CHEM PANEL A/G Ratio 0.8 0.7 - 1.6 01/29 [facility] CHEM PANEL Globulin 4.5 2.7 - 4.2 01/29 [facility] CHEM PANEL AGAP 12.3 10.0 - 01/29 20.0 [facility] CHEM PANEL eGFR 94 01/29 Result Comment: The [facility] eGFR is calculated using the CKD-EPI formula. In most young, healthy individuals the eGFR will be >90 mL/min/1.73m2 . The eGFR declines with age. An eGFR of 60-89 may be normal in some populations, particularly the elderly, for whom the CKD-EPI formula has not been extensively validated. Use of the eGFR is not recommended in the following populations:< br/>
Chapis viduals with unstable creatinine concentration s, including patients and those with serious co-morbid conditions.<b r/>
Patie nts with extremes in muscle mass or diet.

The data above are obtained from the National Kidney Disease Education Program (NKDEP) which additionally recommends that when the eGFR is used in patients with extremes of body mass index for purposes of drug dosing, the eGFR should be multiplied by the estimated BMI. CHEM PANEL Bili Total 0.5 0.2 - 1.3 01/29 [facility] CHEM PANEL Alk Phos 71 39 - 136 01/29 [facility] CHEM PANEL Creatinine 1.19 0.50 - 05/13 MH Lvl 1.40 /2016 [facility] CHEM PANEL Total Protein 8.3 6.4 - 8.4 01/29 [facility] CHEM PANEL Albumin Lvl 3.8 3.5 - 5.0 01/29 [facility] CHEM PANEL Calcium Lvl 9.3 8.5 - 10.5 01/29 [facility] CHEM PANEL CO2 27 24 - 32 01/29 [facility] CHEM PANEL Chloride Lvl 101 95 - 109 01/29 [facility] CHEM PANEL AST 16 0 - 37 01/29 [facility] CHEM PANEL ALT 32 0 - 65 01/29 [facility] CHEM PANEL Sodium Lvl 137 135 - 145 01/29 [facility] CHEM PANEL Potassium Lvl 3.3 3.5 - 5.1 01/29 [facility] CHEM PANEL BUN 10 7 - 22 01/29 [facility] CHEM PANEL Glucose Lvl 93 70 - 99 01/29 [facility] HEMATOLOGY Hct 43.7 42.0 - 01/29 MH 54.0 /2016 [facility] HEMATOLOGY Hgb 14.4 14.0 - 01/29 MH 18.0 [facility] HEMATOLOGY RBC 5.24 4.70 - 01/29 MH 6.10 /2016 [facility] HEMATOLOGY Platelet 290 133 - 450 01/29 [facility] HEMATOLOGY RDW 13.8 11.5 - 01/29 MH 14.5 /2016 [facility] HEMATOLOGY WBC 9.6 3.7 - 10.4 01/29 [facility] HEMATOLOGY MCHC 32.9 32.0 - 01/29 MH 36.0 /2016 [facility] HEMATOLOGY MCH 27.4 27.0 - 01/29 MH 31.0 /2016 [facility] HEMATOLOGY MCV 83.3 80.0 - 01/29 MH 94.0 [facility] HEMATOLOGY MPV 8.5 7.4 - 10.4 01/29 [facility] HEMATOLOGY Eosinophils 0.9 0.0 - 4.0 01/29 [facility] HEMATOLOGY Monocytes 13.3 2.0 - 12.0 01/29 [facility] HEMATOLOGY Segs-Bands # 6.4 1.5 - 8.1 01/29 [facility] HEMATOLOGY Basophils 0.4 0.0 - 1.0 01/29 [facility] HEMATOLOGY Lymphocytes 18.6 20.0 - 01/29 MH 40.0 /2016 [facility] HEMATOLOGY Segs 66.8 45.0 - 01/29 75.0 /2017 [facility] HEMATOLOGY Basophils # 0.0 0.0 - 0.2 01/29 [facility] HEMATOLOGY Monocytes # 1.3 0.0 - 0.8 01/29 [facility] HEMATOLOGY Lymphocytes # 1.8 1.0 - 5.5 01/29 [facility] HEMATOLOGY Eosinophils # 0.1 0.0 - 0.5 01/29 [facility] Pathology Reports No Data Provided for This Section Diagnostic Reports No Data Provided for This Section Consultation Notes No Data Provided for This Section Discharge Summaries No Data Provided for This Section History and Physicals No Data Provided for This Section Vital Signs Vital Sign Value Date Comments Source Systolic (mm Hg) 125 08/05/2018 [place] [facility] Diastolic (mm Hg) 62 08/05/2018 [facility] st Heart Rate 88 08/05/2018 [facility] Temperature Oral (F) 97.9 F 08/05/2018 [facility] Resp[place] Rate 16 08/05/2018 [facility] BMI Calculated 43.52 08/05/2018 [facility] Weight 168.636 08/05/2018 [facility] Height 196.85 cm 08/05/2018 [facility] Temperature Oral (F) 98.4 F 08/05/2018 [facility] Heart Rate 86 08/05/2018 [facility] Respitory Rate 16 08/05/2018 [facility] Systolic (mm Hg) 127 08/05/2018 [facility] [facility] Diastolic (mm Hg) 86 08/05/2018 [facility] st Temperature Oral (F) 97.7 F 01/29/2017 [facility] Systolic (mm Hg) 147 01/29/2017 [facility] Diastolic (mm Hg) 95 01/29/2017 [facility] st Respitory Rate 16 01/29/2017 [facility] Heart Rate 103 01/29/2017 [facility] Systolic (mm Hg) 154 01/29/2017 [place] [facility] Diastolic (mm Hg) 111 01/29/2017 [facility] st Respitory Rate 22 01/29/2017 [facility] Heart Rate 113 01/29/2017 [facility] Weight 136.364 01/29/2017 [facility] Respitory Rate 20 01/29/2017 [facility] Heart Rate 117 01/29/2017 [facility] Systolic (mm Hg) 157 01/29/2017 [place] Diastolic (mm Hg) 95 01/29/2017 [facility] Encounters Location Location Encounter Encounter Reason Attending ADM DC Stat us Source Details Type Number For Provider Date Date [facility] [id number] Jose Tracey 01/29 01/29 [place] /2016 [facility] [id number] Perfecto 08/05 08/05 [place] Nazario /2017 [facility] Procedures No Data Provided for This Section Assessment and Plan No Data Provided for This Section Plan of Care No Data Provided for This Section Social History Social History Date Source Social History TypeResponse 01/29/2017 [facility] Substance Abuse Use: Current. Type: Ecstasy. Recreational Drug Route: Oral . Alcohol Current, Frequency: Daily. Smoking Status Current every day smoker; Exposure to To bacco Smoke None; Cigarette Smoking Last 365 Days No; Reg Smoking Cessation Counseling No entered on: 08/05/18 Family History No Data Provided for This Section Advance Directives No Data Provided for This Section Functional Status No Data Provided for This Section
[2020-04-08 01:32] VITALS: TEMP 98.2; O2SAT 100
[2020-04-08 01:34] VITALS: BP 146/86
--- NOTE | 2020-04-08 10:16 | EKG ---
Test Date: 2020-04-07 Test Time: 14:01:51 Vision Specialist: SARI MEASUREMENT RESULTS: Intervals: Rate: 87 NE: 162 QRSD: 98 QT: 366 QTc: 440 [place]: P: 62 NE: 162 QRS: 64 T: 42 INTERPRETIVE STATEMENTS: Normal sinus rhythm Normal ECG Compared to ECG 01/06/2016 23:04:26 T-wave abnormality no longer present Electronically Signed On 04-08-20 10:13:57 CDT by Lyndon Lewis
== END 2020-04-07 15:34 | disposition home or self-care (01) ==
LOC: ER 11:00
DX: R42 Dizziness and giddiness (principal)
CPT/HCPCS: 93005; 85025; 80048; 36415; 70450; 99284; J7030; J8597

== ENCOUNTER 2021-01-27 14:46 | Emergency (ER) | payer OTHER ==
--- NOTE | 2021-01-27 16:25 | RAD REPORT ---
EXAM DESCRIPTION: RAD - Wrist Right 3 View - 01/27/2021 4:12 pm CLINICAL HISTORY: PAIN, no single precipitating event COMPARISON: No comparisons FINDINGS: No fracture is identified. There is no dislocation or periosteal reaction noted. No foreig n body or other soft tissue abnormality. IMPRESSION: Negative right wrist examination.
--- NOTE | 2021-01-27 16:29 | EDPHYS ---
Physician Documentation [facility] Name: Jesse Chilel Age: 36 yrs Sex: Male : 1985 Arrival Date: 01/27/2021 Time: 14:51 Bed Treatment Private MD: ED Physician Juan Diego Laguerre HPI: 01/27 17:33 This 36 yrs old Black Male presents to ER via Ambulatory with complaints of Wrist Pain. kb 17:33 The patient or guardian reports pain, swelling. The complaints affect the right wrist kb diffusely. Context: The problem was sustained at home, resulted from pushing up with right hand from the floor. Onset: The symptoms/episode began/occurred 4 day(s) ago. Modifying factors: The symptoms are alleviated by nothing, the symptoms are aggravated by nothing. Associated signs and symptoms: The patient has no apparent associated signs or symptoms. The patient has not experienced similar symptoms in the past. The patient has not recently seen a physician. Pt states he twisted his wrist approx 4 days ago. States it was painful and swollen, but is getting better now. States the first day he could hardly move it, but now has full ROM. Historical: - Allergies: 15:02 NKA; tw2 - Home Meds: 15:02 Trileptal Oral [Active]; Prazosin Oral [Active]; Zyprexa Oral [Active]; tw2 - PMHx: 15:02 Asthma; Bipolar disorder; GERD; Hypertension; tw2 - PSHx: 15:02 left foot; tw2 - Immunization history:: Adult Immunizations. - Social history:: Smoking status: . ROS: 17:31 Constitutional: Negative for fever, chills, and weight loss, Skin: Negative for injury, kb rash, and discoloration. 17:31 MS/extremity: Positive for pain, swelling, tenderness, of the right wrist. 17:31 All other systems are negative. Exam: 17:31 Constitutional: This is a well developed, well nourished patient who is awake, alert, kb and in no acute distress. Head/Face: Normocephalic, atraumatic. ENT: Moist Mucous membranes Respiratory: Respirations even and unlabored. No increased work of breathing, no retractions or nasal flaring. Skin: Warm, dry with normal turgor. Normal color. Neuro: Awake and alert, GCS 15, oriented to person, place, time, and situation. Moves all extremities. Normal gait. Psych: Awake, alert, with orientation to person, place and time. Behavior, mood, and affect are within normal limits. 17:31 Musculoskeletal/extremity: Extremities: grossly normal except: noted in the right wrist: pain, swelling, ROM: intact in all extremities, Circulation is intact in all extremities. Sensation intact. Vital Signs: 14:56 BP 137 / 84; Pulse 121; Resp 19; Temp 98(TE); Pulse Ox 98% on R/A; Weight 196.45 kg tw2 (M); Height 6 ft. 5 in. (195.58 cm); 16:30 BP 126 / 76; Pulse 99; Resp 18 S; Pulse Ox 99% on R/A; ca1 14:56 Body Mass Index 51.36 (196.45 kg, 195.58 cm) tw2 MDM: 15:04 Patient medically screened. kb 17:32 Data reviewed: vital signs, nurses notes. Data interpreted: Pulse oximetry: on room air kb is 99 %. Interpretation: normal. Counseling: I had a detailed discussion with the patient and/or guardian regarding: the historical points, exam findings, and any diagnostic results supporting the discharge/admit diagnosis, radiology results, the need for outpatient follow up, a orthopedic surgeon, to return to the emergency department if symptoms worsen or persist or if there are any questions or concerns that arise at home. 01/27 15:07 Order name: Wrist Right 3 View XRAY; Complete Time: 16:28 kb Administered Medications: No medications were administered Disposition: 17:54 Co-signature as Attending Physician, JuanD iego Laguerre MD. rn Disposition: 01/27/21 16:28 Discharged to Home. Impression: Pain in right wrist. - Condition is Stable. - Discharge Instructions: Wrist Pain, [id number]. - Medication Reconciliation Form, Thank You Letter, Antibiotic Education, Prescription Opioid Use, Work release form form. - Follow up: Private Physician; When: 2 - 3 days; Reason: Recheck today's complaints, Continuance of care, Re-evaluation by your physician. Follow up: Emergency Department; When: As needed; Reason: Worsening of condition. Signatures: Dispatcher [employer] Zoe Adams, REMY-C REMY-Juan Diego Daniel MD MD rn Annabel Butterfield RN RN tw2 Sandrine Wade RN RN ca1 Corrections: (The following items were deleted from the chart) 16:41 16:28 01/27/2021 16:28 Discharged to Home. Impression: Pain in right wrist. Condition ca1 is Stable. Forms are Medication Reconciliation Form, Thank You Letter, Antibiotic Education, Prescription Opioid Use. Follow up: Private Physician; When: 2 - 3 days; Reason: Recheck today's complaints, Continuance of care, Re-evaluation by your physician. Follow up: Emergency Department; When: As needed; Reason: Worsening of condition. kb
--- NOTE | 2021-01-27 16:29 | ER ---
Nurse's Notes [facility] Name: Jesse Chilel Age: 36 yrs Sex: Male : 1985 Arrival Date: 01/27/2021 Time: 14:51 Bed Treatment Private MD: Diagnosis: Pain in right wrist Presentation: 01/27 14:56 Chief complaint: Patient states: probably longer than 4 days i spun around getting off tw2 the floor and its sore and it pops. my wants me to make sure nothing is broken. Coronavirus screen: At this time, the client does not indicate any symptoms associated with coronavirus-19. Ebola Screen: Patient denies travel to an Ebola-affected area in the 21 days before illness onset. Initial Sepsis Screen: Does the patient meet any 2 criteria? HR > 90 bpm. No. Patient's initial sepsis screen is negative. Does the patient have a suspected source of infection? No. Patient's initial sepsis screen is negative. Risk Assessment: Do you want to hurt yourself or someone else? Patient reports no desire to harm self or others. Onset of symptoms was January 27, 2021. 14:56 Method Of Arrival: Ambulatory tw2 14:56 Acuity: IVAN 4 tw2 Triage Assessment: 15:00 General: Appears in no apparent distress. obese, Behavior is calm, cooperative, tw2 appropriate for age. Pain: Complains of pain in right wrist. Historical: - Allergies: 15:02 NKA; tw2 - Home Meds: 15:02 Trileptal Oral [Active]; Prazosin Oral [Active]; Zyprexa Oral [Active]; tw2 - PMHx: 15:02 Asthma; Bipolar disorder; GERD; Hypertension; tw2 - PSHx: 15:02 left foot; tw2 - Immunization history:: Adult Immunizations. - Social history:: Smoking status: . Screenin:05 Abuse screen: Denies threats or abuse. Nutritional screening: No deficits noted. tw2 Tuberculosis screening: No symptoms or risk factors identified. Fall Risk None identified. Assessment: 15:05 Reassessment: provider at bedside at this time. tw2 15:10 General: Appears in no apparent distress. comfortable, Behavior is calm, cooperative. ca1 Pain: Complains of pain in dorsal aspect of right wrist and palmar aspect of right wrist Pain currently is 7 out of 10 on a pain scale. Pain began 2-3 days ago. Neuro: Level of Consciousness is awake, alert, obeys commands, Oriented to person, place, time, situation. Derm: Skin is intact, is healthy with good turgor, Skin is pink, warm \T\ dry. Musculoskeletal: Circulation, motion, and sensation intact. Capillary refill < 3 seconds. 16:30 Reassessment: Patient appears in no apparent distress at this time. Patient is alert, ca1 oriented x 3, equal unlabored respirations, skin warm/dry/pink. Vital Signs: 14:56 BP 137 / 84; Pulse 121; Resp 19; Temp 98(TE); Pulse Ox 98% on R/A; Weight 196.45 kg tw2 (M); Height 6 ft. 5 in. (195.58 cm); 16:30 BP 126 / 76; Pulse 99; Resp 18 S; Pulse Ox 99% on R/A; ca1 14:56 Body Mass Index 51.36 (196.45 kg, 195.58 cm) tw2 ED Course: 14:51 Patient arrived in ED. ds1 15:00 Triage completed. tw2 15:00 Arm band placed on. tw2 15:02 Bed in low position. Call light in reach. tw2 15:03 Sandrine Wade, RN is Primary Nurse. ca1 15:04 [facility]C [facility]. kb 15:04 Juan Diego Laguerre MD is Attending Physician. kb 16:12 Wrist Right 3 View XRAY In Process Unspecified. EDMS 16:41 No provider procedures requiring assistance completed. Patient did not have IV access ca1 during this emergency room visit. Administered Medications: No medications were administered Outcome: 16:28 Discharge ordered by . kb 16:41 Discharged to home ambulatory. ca1 16:41 Condition: stable 16:41 Discharge instructions given to patient, Instructed on discharge instructions, follow up and referral plans. Demonstrated understanding of instructions, follow-up care. 16:41 Patient left the ED. ca1 Signatures: Dispatcher [employer] EDMS Zoe Carter FNP-C FNP-Ckb [place], Demi ds1 Annabel Butterfield RN RN tw2 Sandrine Wade RN RN ca1
== END 2021-01-27 16:41 | disposition home or self-care (01) ==
LOC: ER 14:46
DX: M25.531 Pain in right wrist (principal); I10 Essential (primary) hypertension; F31.9 Bipolar disorder, unspecified
CPT/HCPCS: 99283

== ENCOUNTER 2021-06-01 09:00 | Emergency (ER) | payer OTHER ==
[2021-06-01] MEDS ORDERED: ZIPRASIDONE MESYLA 20 MG/VIAL IM ONE (09:27)
[2021-06-01] MEDS ORDERED: HALOPERIDOL LACT 5 MG/ML INJ ONE (09:27)
[2021-06-01] MEDS ORDERED: WATER FOR INJ,STERILE 10 ML ONE (09:28)
--- NOTE | 2021-06-01 10:59 | ER ---
Nurse's Notes [facility] Name: Jesse Chilel Age: 36 yrs Sex: Male : 1985 Arrival Date: 06/01/2021 Time: 09:01 Bed 3 Private MD: Diagnosis: Restlessness and agitation;Irritability and anger Presentation: 06/01 09:17 Chief complaint: [place] [employer] was called to [facility] in [place] for a combative male. Patient ap3 was tazed twice. PD states that the patients was also there last night and they were called for the same complaint. Coronavirus screen: At this time, the client does not indicate any symptoms associated with coronavirus-19. Ebola Screen: No symptoms or risks identified at this time. Initial Sepsis Screen: Does the patient meet any 2 criteria? No. Patient's initial sepsis screen is negative. Risk Assessment:. 09:17 Method Of Arrival: Law Enforcement: [place] [employer] ap3 09:25 Initial Sepsis Screen: Does the patient meet any 2 criteria? Does the patient have a ap3 suspected source of infection? No. Patient's initial sepsis screen is negative. Risk Assessment:. Onset of symptoms is unknown. 09:27 Risk Assessment: Do you want to hurt yourself or someone else? Patient reports ap3 desire/thoughts of hurting themselves or someone else. Provider notified. 09:27 Acuity: IVAN 2 ap3 Historical: - Allergies: 09:32 NKA; ap3 - Home Meds: 09:34 Prazosin Oral [Active]; Trileptal Oral [Active]; Zyprexa Oral [Active]; ap3 - PMHx: 09:32 Asthma; Bipolar disorder; GERD; Hypertension; ap3 - Immunization history:: Adult Immunizations unknown. - Social history:: Smoking status: unknown Patient uses patient states he self medicates. Screenin:20 Abuse screen: Denies threats or abuse. Nutritional screening: No deficits noted. ap3 Tuberculosis screening: No symptoms or risk factors identified. Fall Risk. Assessment: 09:22 General: patient was released of handcuffs and placed on soft restraints. ap3 09:23 General: Behavior is agitated, combative, restless, uncooperative. General: Appears ap3 unkempt. Pain: Denies pain. Neuro: Level of Consciousness is awake, alert, Oriented to person, place, time, Community Support Specialist are equal bilaterally Moves all extremities. Cardiovascular: No deficits noted. Respiratory: Airway is patent Respiratory effort is even, unlabored, Respiratory pattern is regular, symmetrical. GI: No signs and/or symptoms were reported involving the gastrointestinal system. : No signs and/or symptoms were reported regarding the genitourinary system. EENT: No signs and/or symptoms were reported regarding the EENT system. Derm: No signs and/or symptoms reported regarding the dermatologic system. Musculoskeletal: No signs and/or symptoms reported regarding the musculoskeletal system. 09:28 General: patient came out of his restraints and became aggressive. security is at ap3 bedside. provider at bedside. Patient ambulated out of the room. patient states he wants to leave and he is hungry. patient escorted back to room provided with a breakfast tray. . 09:34 Reassessment: patient now in stretcher, laying down. side rails are up X's 2. patients ap3 eyes are closed, respirations even and unlabored. 10:40 Reassessment: patient in stretcher. resting, with eyes closed. respirations are even iw and unlabored. bed is locked in lowest position with side rails up X's 2. 10:58 Reassessment: patient awake, eating, requesting to go home. provider at bedside. ap3 Vital Signs: 09:17 BP 188 / 147; Resp 18; Temp 98.7(O); Height 6 ft. 5 in. (195.58 cm); ap3 ED Course: 09:01 Patient arrived in ED. aa5 09:17 Vandana Victor, RAJIV is Primary Nurse. ap3 09:20 Agustin Lutz PA is PHCP. jr8 09:20 Nico Cr MD is Attending Physician. jr8 09:25 Patient has correct armband on for positive identification. Bed in low position. Side ap3 rails up X2. security nearby. Cardiac monitoring not applicable on this patient. PO fluids given. 09:27 Triage completed. ap3 09:34 Arm band placed on right wrist. ap3 10:59 Zach Yen MD is Referral Physician. jr8 11:12 No provider procedures requiring assistance completed. Patient did not have IV access ap3 during this emergency room visit. Administered Medications: 09:00 Drug: Geodon (ziprasidone) 20 mg Route: IM; Site: right deltoid; iw 11:13 Follow up: Response: No adverse reaction ap3 09:00 Drug: HALdol (as decanoate) 5 mg Route: IM; Site: right deltoid; iw 11:13 Follow up: Response: No adverse reaction ap3 Outcome: 10:58 Discharge ordered by MD. márquez 11:12 Discharged to home ambulatory. ap3 11:12 Condition: good 11:12 Discharge instructions given to patient, Instructed on discharge instructions, follow up and referral plans. Demonstrated understanding of instructions, follow-up care. 11:14 Patient left the ED. ap3 Signatures: Kacie Reyes RN RN iw Marva Hernández RN RN [email or web address] Agustin Lutz PA PA jr8 Vandana Victor RN RN ap3
--- NOTE | 2021-06-01 10:59 | EDPHYS ---
Physician Documentation [facility] Name: Jesse Chilel Age: 36 yrs Sex: Male : 1985 Arrival Date: 06/01/2021 Time: 09:01 Bed 3 Private MD: ED Physician Nico Cr HPI: 06/01 09:43 This 36 yrs old Black Male presents to ER via Law Enforcement with complaints of jr8 aggitation. 09:43 The patient presents to the emergency department with paranoia, agitation . Onset: The jr8 symptoms/episode began/occurred acutely, today. Past psychiatric history: Prior diagnosis: bipolar disorder. Associated signs and symptoms: The patient has no apparent associated signs or symptoms. Severity of symptoms: At their worst the symptoms were moderate in the emergency department the symptoms have improved mildly. The patient has experienced similar episodes in the past, a few times. The patient has not recently seen a physician. 12:44 This is a 36-year-old gentleman that came in by police after being picked up from the [place] [employer]. Patient was very angry and irate at that time. Patient has a history of bipolar disorder in the past with rosa. Patient is alert to person place time and event but very angry. Stated that is being derived from family issues at this point. Has not been able to see his children from his baby's mother. Police stated that they had to restrain him initially. Historical: - Allergies: 09:32 NKA; ap3 - Home Meds: 09:34 Prazosin Oral [Active]; Trileptal Oral [Active]; Zyprexa Oral [Active]; ap3 - PMHx: 09:32 Asthma; Bipolar disorder; GERD; Hypertension; ap3 - Immunization history:: Adult Immunizations unknown. - Social history:: Smoking status: unknown Patient uses patient states he self medicates. ROS: 12:44 Eyes: Negative for injury, pain, redness, and discharge, ENT: Negative for injury, jr8 pain, and discharge, Neck: Negative for injury, pain, and swelling, Cardiovascular: Negative for chest pain, palpitations, and edema, Respiratory: Negative for shortness of breath, cough, wheezing, and pleuritic chest pain, Abdomen/GI: Negative for abdominal pain, nausea, vomiting, diarrhea, and constipation, Back: Negative for injury and pain, MS/Extremity: Negative for injury and deformity, Skin: Negative for injury, rash, and discoloration, Neuro: Negative for headache, weakness, numbness, tingling, and seizure. 12:44 Psych: Positive for Anger, acute rosa. Exam: 12:44 Eyes: Pupils equal round and reactive to light, extra-ocular motions intact. Lids and jr8 lashes normal. Conjunctiva and sclera are non-icteric and not injected. Cornea within normal limits. Periorbital areas with no swelling, redness, or edema. ENT: Nares patent. No nasal discharge, no septal abnormalities noted. Tympanic membranes are normal and external auditory canals are clear. Oropharynx with no redness, swelling, or masses, exudates, or evidence of obstruction, uvula midline. Mucous membranes moist. Neck: Trachea midline, no thyromegaly or masses palpated, and no cervical lymphadenopathy. Supple, full range of motion without nuchal rigidity, or vertebral point tenderness. No Meningismus. Cardiovascular: Regular rate and rhythm with a normal S1 and S2. No gallops, murmurs, or rubs. Normal PMI, no JVD. No pulse deficits. Respiratory: Lungs have equal breath sounds bilaterally, clear to auscultation and percussion. No rales, rhonchi or wheezes noted. No increased work of breathing, no retractions or nasal flaring. Abdomen/GI: Soft, non-tender, with normal bowel sounds. No distension or tympany. No guarding or rebound. No evidence of tenderness throughout. Back: No spinal tenderness. No costovertebral tenderness. Full range of motion. Skin: Warm, dry with normal turgor. Normal color with no rashes, no lesions, and no evidence of cellulitis. MS/ Extremity: Pulses equal, no cyanosis. Neurovascular intact. Full, normal range of motion. Neuro: Awake and alert, GCS 15, oriented to person, place, time, and situation. Cranial nerves II-XII grossly intact. Motor strength 5/5 in all extremities. Sensory grossly intact. 12:44 Constitutional: The patient appears alert, awake, agitated. 12:44 Psych: Behavior/mood is aggressive, Affect is animated, Oriented to person, place, time, Patient has no thoughts/intents to harm self or others. Judgement / Insight is impaired. Memory is normal. Delusions/hallucinations are not present. Vital Signs: 09:17 BP 188 / 147; Resp 18; Temp 98.7(O); Height 6 ft. 5 in. (195.58 cm); ap3 MDM: 09:20 Patient medically screened. jr8 10:56 Data reviewed: vital signs, nurses notes. ED course: Post medication and being able to jr8 sleep for the last couple hours. Patient feels markedly better. Patient is alert and oriented to person place time and event. Mentating well and can recall all previous events. Patient stated that he was very upset for family issues currently. Patient now very responsive to constructive criticism and is doing well. Currently not a danger to himself or others. Patient's judgment is appropriate at this time. At no point did he have any homicidal or suicidal ideations. Discussed needing to follow-up with psychiatry for his anger issues and to help better control his bipolar disorder. Patient receptive to the conversation will follow up. Also reassured patient that if he were to get in trouble and started to feel bad or anger again that he could come back for us to further evaluate him which she was very appreciative of. Patient will be discharged to follow-up with practitioner.. 06/01 09:20 Order name: Restraint:Violent/Self Destructive (Adult:18yo or >); Complete Time: : jr8 Administered Medications: 09:00 Drug: Geodon (ziprasidone) 20 mg Route: IM; Site: right deltoid; iw 11:13 Follow up: Response: No adverse reaction ap3 09:00 Drug: HALdol (as decanoate) 5 mg Route: IM; Site: right deltoid; iw 11:13 Follow up: Response: No adverse reaction ap3 Disposition Summary: 06/01/21 10:58 Discharge Ordered Location: Home jr8 Problem: new jr8 Symptoms: are resolved jr8 Condition: Stable jr8 Diagnosis - Restlessness and agitation jr8 - Irritability and anger jr8 Followup: jr8 - With: Private Physician - When: 1 - 2 days - Reason: Recheck today's complaints, Continuance of care, Re-evaluation by your physician Followup: jr8 - With: Zach Yen MD - When: 2 - 3 days - Reason: Recheck today's complaints, Continuance of care, Re-evaluation by your physician Discharge Instructions: - Discharge Summary Sheet jr8 - Managing Anger, Adult jr8 Forms: - Medication Reconciliation Form jr8 - Thank You Letter jr8 - Antibiotic Education jr8 - Prescription Opioid Use jr8 Signatures: Kacie Reyes, RN RN Agustin Jones PA PA jr8 Vandana Victor RN RN ap3 Corrections: (The following items were deleted from the chart) 12:51 10:56 ED course: Post medication and being able to sleep for the last couple hours. jr8 Patient feels markedly better. Patient is alert and oriented to person place time and event. Mentating well and working recall all previous events. Patient stated that he was very upset for family issues currently. Patient now very responsive to constructive criticism and is doing well. Currently not a danger to himself or others. At no point did he have any homicidal or suicidal ideations. Patient will be discharged to follow-up with practitioner.. jr8
[2021-06-01 12:12] VITALS: BP 188/147; TEMP 98.7
== END 2021-06-01 11:14 | disposition home or self-care (01) ==
LOC: ER 09:00
DX: R45.4 Irritability and anger (principal); F31.9 Bipolar disorder, unspecified; I10 Essential (primary) hypertension; Z78.1 Physical restraint status
CPT/HCPCS: 96372; 99284; J1630; J3486